=== PATIENT | male | born 1935 | race Asian ===

== ENCOUNTER 2021-01-25 13:51 | Emergency (ER) | payer MEDICARE ==
[~2021-01-25] VITALS: Ht 167.6 cm; Wt 68.2 kg
[2021-01-25 13:54] VITALS: BP 125/66
== END 2021-01-25 16:39 | disposition home or self-care (01) ==
LOC: EMS 13:54
DX: T78.40XA Allergy, unspecified, initial encounter (principal); X58.XXXA Exposure to other specified factors, initial encounter
CPT/HCPCS: 99282; Z7502